=== PATIENT | female | born 1965 | race Caucasian/White ===

== ENCOUNTER → 2019-03-23 | Outpatient (CLI) | payer OTHER ==
[~2019-03-23] MED LIST: ATIVAN1 MG PO; CIPROFLOXACIN500 MG PO; HEPARIN SC; KEFLEX500 MG PO; LEXAPRO10 MG PO; MOTRIN800 MG PO; PENICILLIN VK500 MG PO; PERCOCET 325 MG1 TA7; PREDNICOT20 MG PO; TAMOXIFEN CITRA20 MG PO; TRAMADOL HCL50 MG PO; [UNRECOGNIZED DRUG - OTHER]; [UNRECOGNIZED DRUG - REMARK] PO
== END | disposition home or self-care (01) ==
LOC: LAB 12:07
DX: E04.1 Nontoxic single thyroid nodule (principal)

== ENCOUNTER → 2019-08-15 | Outpatient (CLI) | payer OTHER ==
[2019-08-15 12:06] LABS: FREE T4 1.19 ng/dl (0.76-1.46)
[2019-08-15 12:11] LABS: THYROID STIM HORMONE (HS) 0.261 uIU/ml (0.358-4.75)
[2019-08-16 08:07] LABS: THYROID PEROXIDASE (TPO) AB <9 IU/mL (0-34)
[2019-08-16 14:09] LABS: THYROGLOBULIN ANTIBODY <1.0 IU/mL (0.0-0.9)
== END | disposition home or self-care (01) ==
LOC: LAB 10:57
PROVIDERS: Internal Medicine
DX: C73 Malignant neoplasm of thyroid gland (principal); E03.9 Hypothyroidism, unspecified; E55.9 Vitamin D deficiency, unspecified

== ENCOUNTER → 2020-06-26 | Outpatient (CLI) | payer OTHER ==
[2020-06-26 10:29] LABS: ALBUMIN 3.6 gm/dl (3.1-4.5); BUN 15 mg/dl (7-24); CHLORIDE 110 mmol/L (98-107); CREATININE 0.85 mg/dL (0.55-1.02); POTASSIUM 3.4 mmol/L (3.5-5.1); SODIUM 141 mmol/L (136-145)
[2020-06-26 10:38] LABS: FREE T4 1.16 ng/dl (0.76-1.46); THYROID STIM HORMONE (HS) 0.007 uIU/ml (0.358-4.75)
[2020-06-27 05:07] LABS: THYROID PEROXIDASE (TPO) AB <9 IU/mL (0-34)
[2020-06-27 15:07] LABS: THYROGLOBULIN ANTIBODY <1.0 IU/mL (0.0-0.9)
== END | disposition home or self-care (01) ==
LOC: LAB 09:32
PROVIDERS: ATTEND Internal Medicine
DX: C73 Malignant neoplasm of thyroid gland (principal); E55.9 Vitamin D deficiency, unspecified; E66.9 Obesity, unspecified; E03.9 Hypothyroidism, unspecified; R25.2 Cramp and spasm

== ENCOUNTER → 2021-05-21 | Outpatient (CLI) | payer OTHER ==
[2021-05-21 11:46] LABS: ALBUMIN 3.5 gm/dl (3.1-4.5); CREATININE 1.39 mg/dL (0.55-1.02); FREE T4 0.7 ng/dl (0.76-1.46); POTASSIUM 3.9 mmol/L (3.5-5.1)
[2021-05-21 11:52] LABS: THYROID STIM HORMONE (HS) 0.96 uIU/ml (0.358-4.75)
[2021-05-22 04:06] LABS: THYROID PEROXIDASE (TPO) AB <8 IU/mL (0-34)
[2021-05-22 15:07] LABS: THYROGLOBULIN ANTIBODY <1.0 IU/mL (0.0-0.9)
== END | disposition home or self-care (01) ==
LOC: LAB 11:02
PROVIDERS: ATTEND Internal Medicine
DX: C73 Malignant neoplasm of thyroid gland (principal); E03.9 Hypothyroidism, unspecified; E66.9 Obesity, unspecified; E55.9 Vitamin D deficiency, unspecified; R25.2 Cramp and spasm

== ENCOUNTER → 2021-07-03 | Outpatient (CLI) | payer OTHER ==
[2021-07-03 15:13] LABS: BILIRUBIN Negative (Negative); BLOOD Negative (Negative); CLARITY Clear (Clear); COLOR Yellow (Yellow); GLUCOSE Negative (Negative); KETONE Negative (Negative); LEUKO ESTERASE Trace (Negative); NITRITE Negative (Negative); SPECIFIC GRAVITY >= 1.030 (1.001-1.030)
[2021-07-03 15:27] LABS: ALBUMIN 3.5 gm/dl (3.1-4.5); BUN 13 mg/dl (7-24); CHLORIDE 106 mmol/L (98-107); POTASSIUM 3.7 mmol/L (3.5-5.1); SODIUM 139 mmol/L (136-145)
[2021-07-03 15:50] LABS: BACTERIA 3+; EPITHELIAL CELLS TNTC; RBC 0-2 rbc/hpf (0-2)
== END | disposition home or self-care (01) ==
LOC: LAB 14:24
PROVIDERS: ATTEND Family Medicine
DX: N18.32 Chronic kidney disease, stage 3b (principal); R10.9 Unspecified abdominal pain; R30.0 Dysuria

== ENCOUNTER → 2021-08-08 | Outpatient (CLI) | payer OTHER ==
[2021-08-08 11:00] LABS: ALBUMIN 3.5 gm/dl (3.1-4.5); BUN 18 mg/dl (7-24); CHLORIDE 111 mmol/L (98-107); CREATININE 1.03 mg/dL (0.55-1.02); FREE T4 0.87 ng/dl (0.76-1.46); POTASSIUM 3.3 mmol/L (3.5-5.1); SODIUM 140 mmol/L (136-145)
[2021-08-08 11:06] LABS: THYROID STIM HORMONE (HS) 0.327 uIU/ml (0.358-4.75)
[2021-08-09 06:07] LABS: THYROID PEROXIDASE (TPO) AB <8 IU/mL (0-34)
== END | disposition home or self-care (01) ==
LOC: LAB 10:17
PROVIDERS: ATTEND Internal Medicine
DX: C73 Malignant neoplasm of thyroid gland (principal); E03.9 Hypothyroidism, unspecified; N18.9 Chronic kidney disease, unspecified; E55.9 Vitamin D deficiency, unspecified; R25.2 Cramp and spasm

== ENCOUNTER → 2021-08-23 | Outpatient (CLI) | payer OTHER | END | disposition home or self-care (01) | LOC: LAB 07:30 | PROVIDERS: ATTEND Internal Medicine | DX: E34.9 Endocrine disorder, unspecified (principal) ==

== ENCOUNTER 2022-03-24 18:47 | Emergency (ER) | payer OTHER ==
[~2022-03-24] VITALS: Ht 162.5 cm; Wt 106.6 kg
[2022-03-24 19:02] VITALS: BP 110/50
[2022-03-24 19:10] LABS: BASO % 0.3 % (0.0-1.0); EOS # 0.3 10*3/uL (0.0-0.4); EOS % 2.8 % (1.0-4.0); HEMATOCRIT 39.3 % (37.0-47.0); LYMPH # 3.1 10*3/uL (1.3-4.4); LYMPH % 26.8 % (27.0-41.0); MEAN CELL VOLUME 87.1 fl (81.0-99.0); MEAN CORPUSCULAR HGB 28.2 pg (27.0-31.0); MEAN CORPUSCULAR HGB CONC 32.3 g/dl (33.0-37.0); MEAN PLATELET VOLUME 9.6 fl (9.6-12.3); MONO # 0.7 10*3/uL (0.1-1.0); MONO % 6.1 % (3.0-9.0); NEUT # 7.4 10*3/uL (2.3-7.9); NEUT % 63.5 % (47.0-73.0); PLATELET COUNT AUTOMATED 326 10*3/uL (130-400); RED BLOOD COUNT 4.51 10*6/uL (4.10-5.10); RED CELL DISTRI WIDTH 13.1 % (0-14.5); WHITE BLOOD COUNT 11.6 10*3/uL (4.8-10.8)
[2022-03-24 19:24] LABS: ALKALINE PHOSPHATASE 55 U/L (45-117); BUN 14 mg/dl (7-24); CHLORIDE 107 mmol/L (98-107); CREATININE 0.92 mg/dL (0.55-1.02); POTASSIUM 3.7 mmol/L (3.5-5.1); SGOT/AST 19 IU/L (3-35); SGPT/ALT 28 U/L (12-78); SODIUM 140 mmol/L (136-145); TOTAL PROTEIN 7.7 gm/dL (6.4-8.2)
[2022-03-24 19:48] LABS: ACT PARTIAL THROMBO TIME 25.7 SECONDS (20.0-32.1)
== END 2022-03-25 01:56 | disposition left against medical advice (07) ==
LOC: ED 18:47
PROVIDERS: Emergency Medicine
DX: R07.89 Other chest pain (principal); Z98.890 Other specified postprocedural states; Z88.1 Allergy status to other antibiotic agents; Z79.899 Other long term (current) drug therapy; Z85.3 Personal history of malignant neoplasm of breast; Z85.850 Personal history of malignant neoplasm of thyroid

== ENCOUNTER 2022-03-25 10:36 | Emergency (ER) | payer OTHER ==
[~2022-03-25] VITALS: Ht 162.5 cm; Wt 106.6 kg
[2022-03-25 10:44] VITALS: BP 139/82
[2022-03-25 11:25] LABS: BASO % 0.5 % (0.0-1.0); EOS # 0.2 10*3/uL (0.0-0.4); EOS % 2.6 % (1.0-4.0); HEMATOCRIT 39.4 % (37.0-47.0); LYMPH # 1.8 10*3/uL (1.3-4.4); LYMPH % 20.7 % (27.0-41.0); MEAN CORPUSCULAR HGB 28.8 pg (27.0-31.0); MEAN CORPUSCULAR HGB CONC 33.5 g/dl (33.0-37.0); MEAN PLATELET VOLUME 9.7 fl (9.6-12.3); MONO # 0.5 10*3/uL (0.1-1.0); MONO % 5.4 % (3.0-9.0); NEUT # 6.2 10*3/uL (2.3-7.9); NEUT % 70.2 % (47.0-73.0); PLATELET COUNT AUTOMATED 334 10*3/uL (130-400); RED BLOOD COUNT 4.58 10*6/uL (4.10-5.10); RED CELL DISTRI WIDTH 13.1 % (0-14.5); WHITE BLOOD COUNT 8.9 10*3/uL (4.8-10.8)
[2022-03-25 11:36] LABS: ACT PARTIAL THROMBO TIME 25.6 SECONDS (20.0-32.1)
[2022-03-25 11:41] LABS: ALKALINE PHOSPHATASE 55 U/L (45-117); BUN 10 mg/dl (7-24); CHLORIDE 109 mmol/L (98-107); CREATININE 0.87 mg/dL (0.55-1.02); POTASSIUM 3.9 mmol/L (3.5-5.1); SGOT/AST 20 IU/L (3-35); SGPT/ALT 29 U/L (12-78); SODIUM 140 mmol/L (136-145); TOTAL PROTEIN 7.7 gm/dL (6.4-8.2)
== END 2022-03-25 14:07 | disposition home or self-care (01) ==
LOC: ED 10:36
PROVIDERS: Student in an Organized Health Care Education/Training Program
DX: I20.8 Other forms of angina pectoris (principal); Z79.899 Other long term (current) drug therapy; Z98.890 Other specified postprocedural states; Z88.1 Allergy status to other antibiotic agents; Z85.3 Personal history of malignant neoplasm of breast

== ENCOUNTER → 2022-04-30 | Outpatient (CLI) | payer OTHER ==
[~2022-04-30] MED LIST changes: +ALENDRONATE SOD10 MG PO; +ARMOUR THYROID90 M1 PO; +ASPIRIN81 M1 PO; -ATIVAN1 MG PO; +ATIVAN2 M1 PO; +IBU800 MG PO; +K-TAB10 MEQ PO; +LEVO-T50 MCG PO; -LEXAPRO10 MG PO; +LEXAPRO20 MG PO; +MELATONIN3 MG PO; +PROTONIX40 MG PO; +VIT D3 PO
== END | disposition home or self-care (01) ==
LOC: CARD 00:59
PROVIDERS: ATTEND Internal Medicine Cardiovascular Disease
DX: I10 Essential (primary) hypertension (principal); E66.01 Morbid (severe) obesity due to excess calories; R06.00 Dyspnea, unspecified; R55 Syncope and collapse; R06.02 Shortness of breath; R07.89 Other chest pain; R60.9 Edema, unspecified

== ENCOUNTER → 2022-05-13 | Outpatient (CLI) | payer OTHER ==
[2022-05-13 13:33] LABS: BUN 14 mg/dl (7-24); CHLORIDE 102 mmol/L (98-107); CREATININE 0.94 mg/dL (0.55-1.02); SODIUM 137 mmol/L (136-145)
[2022-05-13 13:41] LABS: FREE T4 0.83 ng/dl (0.76-1.46)
[2022-05-14 04:05] LABS: THYROID PEROXIDASE (TPO) AB <9 IU/mL (0-34)
[2022-05-14 21:04] LABS: THYROGLOBULIN ANTIBODY <1.0 IU/mL (0.0-0.9)
== END | disposition home or self-care (01) ==
LOC: LAB 12:34
PROVIDERS: ATTEND Internal Medicine
DX: C73 Malignant neoplasm of thyroid gland (principal); R73.9 Hyperglycemia, unspecified; E55.9 Vitamin D deficiency, unspecified; E03.9 Hypothyroidism, unspecified; R25.2 Cramp and spasm

== ENCOUNTER → 2022-09-04 | Outpatient (CLI) | payer OTHER ==
[2022-09-04 11:22] LABS: BUN 13 mg/dl (9-23); CHLORIDE 105 mmol/L (98-107); FREE T4 1.28 ng/dl (0.89-1.76); POTASSIUM 4.2 mmol/L (3.4-5.1); THYROID STIM HORMONE (HS) 0.308 uIU/ml (0.550-4.780)
[2022-09-05 04:06] LABS: THYROID PEROXIDASE (TPO) AB 12 IU/mL (0-34)
[2022-09-05 16:08] LABS: THYROGLOBULIN ANTIBODY <1.0 IU/mL (0.0-0.9)
== END | disposition home or self-care (01) ==
LOC: LAB 10:17
PROVIDERS: ATTEND Internal Medicine
DX: C73 Malignant neoplasm of thyroid gland (principal); R73.9 Hyperglycemia, unspecified; E55.9 Vitamin D deficiency, unspecified; E03.9 Hypothyroidism, unspecified; E87.6 Hypokalemia

== ENCOUNTER → 2023-05-25 | Outpatient (CLI) | payer OTHER ==
[2023-05-25 13:09] LABS: ALKALINE PHOSPHATASE 59 U/L (46-116); BUN 10 mg/dl (9-23); CHLORIDE 104 mmol/L (98-107); CHOLESTEROL 168 mg/dL (<200); FREE T4 1.29 ng/dl (0.89-1.76); LDL CHOLESTEROL 93 mg/dL (9-159); POTASSIUM 3.7 mmol/L (3.4-5.1); SGPT/ALT 20 U/L (5-49); TOTAL PROTEIN 7.9 gm/dL (6.0-8.0); TRIGLYCERIDES 154 mg/dl (<150)
[2023-05-26 15:07] LABS: THYROGLOBULIN ANTIBODY 1.2 IU/mL (0.0-0.9)
== END | disposition home or self-care (01) ==
LOC: LAB 12:23
PROVIDERS: ATTEND Internal Medicine
DX: C73 Malignant neoplasm of thyroid gland (principal); R25.2 Cramp and spasm; E55.9 Vitamin D deficiency, unspecified; E03.9 Hypothyroidism, unspecified; R73.9 Hyperglycemia, unspecified; E87.5 Hyperkalemia

== ENCOUNTER → 2023-10-20 | Outpatient (CLI) | payer OTHER ==
[2023-10-20 10:25] LABS: BUN 19 mg/dl (9-23); CHLORIDE 104 mmol/L (98-107); FREE T4 1.12 ng/dl (0.89-1.76); POTASSIUM 3.7 mmol/L (3.4-5.1)
[2023-10-21 04:06] LABS: THYROID PEROXIDASE (TPO) AB 11 IU/mL (0-34)
[2023-10-21 17:07] LABS: THYROGLOBULIN ANTIBODY <1.0 IU/mL (0.0-0.9)
== END ==
LOC: LAB 09:03
PROVIDERS: ATTEND Internal Medicine
DX: C73 Malignant neoplasm of thyroid gland (principal); E03.9 Hypothyroidism, unspecified; E55.9 Vitamin D deficiency, unspecified; E34.9 Endocrine disorder, unspecified; R25.2 Cramp and spasm

== ENCOUNTER → 2024-02-10 | Outpatient (CLI) | payer OTHER ==
[2024-02-10 10:05] LABS: BUN 15 mg/dl (9-23); CHLORIDE 106 mmol/L (98-107); FREE T4 0.98 ng/dl (0.89-1.76); POTASSIUM 3.7 mmol/L (3.4-5.1)
== END | disposition home or self-care (01) ==
LOC: LAB 08:59
PROVIDERS: ATTEND Internal Medicine
DX: C73 Malignant neoplasm of thyroid gland (principal); E03.9 Hypothyroidism, unspecified; E55.9 Vitamin D deficiency, unspecified; E34.9 Endocrine disorder, unspecified; E87.6 Hypokalemia

== ENCOUNTER → 2024-05-31 | Outpatient (CLI) | payer OTHER ==
[2024-05-31 10:35] LABS: BUN 22 mg/dl (9-23); CHLORIDE 104 mmol/L (98-107); FREE T4 0.99 ng/dl (0.89-1.76); POTASSIUM 3.8 mmol/L (3.4-5.1)
[2024-06-01 12:07] LABS: THYROID PEROXIDASE (TPO) AB <9 IU/mL (0-34)
[2024-06-01 16:07] LABS: THYROGLOBULIN ANTIBODY <1.0 IU/mL (0.0-0.9)
== END | disposition home or self-care (01) ==
LOC: LAB 08:52
PROVIDERS: ATTEND Internal Medicine
DX: E03.9 Hypothyroidism, unspecified (principal); C73 Malignant neoplasm of thyroid gland; E55.9 Vitamin D deficiency, unspecified; R25.2 Cramp and spasm; E87.6 Hypokalemia

== ENCOUNTER → 2024-11-03 | Outpatient (CLI) | payer OTHER ==
[2024-11-03 10:58] LABS: BUN 21 mg/dl (9-23); CHLORIDE 106 mmol/L (98-107); FREE T4 1.17 ng/dl (0.89-1.76); POTASSIUM 3.2 mmol/L (3.4-5.1)
== END | disposition home or self-care (01) ==
LOC: LAB 08:17
PROVIDERS: ATTEND Internal Medicine
DX: C73 Malignant neoplasm of thyroid gland (principal); E03.9 Hypothyroidism, unspecified; E55.9 Vitamin D deficiency, unspecified; R25.2 Cramp and spasm; E34.9 Endocrine disorder, unspecified

== ENCOUNTER → 2025-03-30 | Outpatient (CLI) | payer OTHER ==
[2025-03-30 11:11] LABS: BUN 14 mg/dl (9-23); FREE T4 1.24 ng/dl (0.89-1.76); LDL CHOLESTEROL 114 mg/dL (9-159); SGPT/ALT 12 U/L (5-49)
== END | disposition home or self-care (01) ==
LOC: LAB 10:11
PROVIDERS: ATTEND Internal Medicine
DX: C73 Malignant neoplasm of thyroid gland (principal); E03.9 Hypothyroidism, unspecified; E55.9 Vitamin D deficiency, unspecified; E66.9 Obesity, unspecified; R25.2 Cramp and spasm